=== PATIENT | male | born 1940 | race Caucasian/White ===

== ENCOUNTER 2016-10-30 13:33 | Inpatient (IN) | payer MEDICARE, OTHER ==
[~2016-10-30] VITALS: Ht 170.2 cm; Wt 74.1 kg
[~2016-10-30 13:33] MED LIST: AZOPT 1% OPHT D10 ML LEFT EYE; BAYER CHEWABLE81 MG PO; COMBIGAN OPHT DR5 ML EACH EYE; COUMADIN4 MG PO; ENULOSE10 G/15 ML PO; HYDROCODONE-APA1 TAB PO; MEGACE400 MG/10 PO; PROBIOTIC1 EAC1 PO; SINGULAIR10 MG PO; SORBITOL4000 ML PO; TRAVATAN Z2.5 ML EACH EYE; VITAMIN B-12500 MC1 PO; VITAMIN D31000 UNI2 PO
[2016-10-30] MEDS ORDERED: CELEXA10 MG PO (14:01)
--- NOTE | 2016-10-30 16:30 | NUR ---
Patient is brought to [facility] via EMS personel on a stretcher patient is able to ambulate with a walker, but very unsteady. He is confused and needs much redirection. 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 EMS staff state he spoke about the airplanes on the ride over and "If you need to know anything about an airplane ask him." Spouse has stated this behavior is new and he has become combative and aggressive. At this time he is in his room and he is being assessed by Johanna Watkins RN. He has the appearance of being distraught, does not look like he feels well. Spouse states he has lost about 18 pounds recently. She said he will drink a boost and he likes egss for breakfast. Spouse is answering questions for patient.
[2016-10-30 17:28] LABS: CHOL - HDL RATIO 5.6 ratio (2.3-4.9); LDL-HDL RATIO 4.2 ratio (1.5-3.5); THYROID STIMULATING HORMONE 5.19 uIU/mL (0.36-3.74)
[2016-10-30 17:38] LABS: HEMOGLOBIN A1C 5.4 % (4.8-6.0)
[2016-10-30 19:27] VITALS: BP 127/85; BP 131/95; BMI 23.8
--- NOTE | 2016-10-30 23:31 | NUR ---
B) Recieved sitting in the day room, alert and oriented to self, anxious, scanning the day room, withdrawn and keeping to himself, I) Administered perscribed medications, redirected and oriented as needed, R) Medication compliant, cooperative with staff, P) Continue plan of care, continueto monitor,
[2016-10-31 06:07] LABS: INR 1.15 (0.85-1.17); PROTIME 14.6 SECONDS (11.6-15.0)
[2016-10-31 07:50] VITALS: BP 110/74
[2016-10-31 11:11] VITALS: Ht 170.2 cm; Wt 74.1 kg
--- NOTE | 2016-10-31 11:42 | NUR ---
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 Patient can ambulate independently with a walker, but needs much direction. I) Provide prescribed meds and reorientate and redirect as needed. R) Patient is calm today and he has been sleepy after he received his am meds. He is compliant with medications today. P) Continue plan of care.
--- NOTE | 2016-10-31 19:38 | NUR ---
Called patients spouse and asked her about meds and did confirmation about meds.
[2016-10-31 22:07] VITALS: BP 113/59
--- NOTE | 2016-11-01 00:26 | NUR ---
B) Recieved sitting in the day room quietly, alert and oriented to self, withdrawn or ignoring his surroundings, little or no interaction with staff or peers unless staff iniates conversation, I) Administered perscribed medications, redirect and orient as needed, R) Medication compliant, cooperative with staff, P) Continue plan of care.
[2016-11-01 07:24] LABS: VITAMIN D 25 HYDROXY 56.6 ng/mL (30.0-100.0)
[2016-11-01 08:20] LABS: RAPID PLASMA REAGIN Non Reactive (Non Reactive)
[2016-11-01 08:55] VITALS: BP 111/81
[2016-11-01 09:17] LABS: FOLATE (FOLIC ACID) - SERUM 18.5 ng/mL (>3.0)
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
--- NOTE | 2016-11-01 11:37 | NUR ---
PATIENT HAS REDDENED AREAS WHERE HE HAS BEEN WEARING NICOTINE PATCHES, DR. PERDOMO ASSESSED, WE DID CHECK WITH PHARMACY TO SEE IF THERE WAS A BY MOUTH ALTERNATIVE AND THERE IS GUM, BUT IT REQUIRES 1 PIECE EVERY ONE TO TWO HOURS. NOT AN APPROPRIATE METHOD FOR THIS PATIENT. PATIENT'S SPOUSE SAYS HE NEEDS A NICOTINE PATCH OR HE BECOMES COMBATIVE. DR. PERDOMO ORDERED MONALISA 60 MG PO BID.
--- NOTE | 2016-11-01 12:11 | NUR ---
B) Patient is awake and alert, he knows he is in the hospital, but he does not know the name of the hospital, he knows he is [facility]. Patient has not made any delusional statements today, he is confused and it does take a little while for him to process. Patient can ambulate with a walker with assist, but he is unsteady. I) Provide prescribed meds and redirect to reality as needed. R) Patient is compliant with meds. He mostly watches, but doesn't participate in groups. P) Continue plan of care.
--- NOTE | 2016-11-01 15:05 | NUR ---
LATE ENTRY FROM 10/31/16 SW MET WITH PT'S ,KEYA. PT'S EXPRESSED GRATITUDE FOR PLAN OF TREATMENT AND VERBALIZED UNDERSTANDING OF MEDICATION ADJUSTMENTS.
[2016-11-01 19:30] VITALS: BP 109/62
--- NOTE | 2016-11-02 02:34 | NUR ---
Patient quiet but social with staff. Pleasant and cooperative with medication and assessment. Oriented to self. Continue plan of care, continue to monitor.
[2016-11-02 09:03] VITALS: BP 106/60
--- NOTE | 2016-11-02 10:07 | NUR ---
B.) Sitting up in chair, alert and oriented to name and some what to place, knows he is in a hospital but does not know why, quiet demeanor, sits and observes otheres. I.) Administer medications and monitor compliance, redirect and reorient as need. Refocus to reality versus nonreality for any delusions or hallucinations. Encourage group participation and monitor safety. R.) Compliant with medications. Reorients but is slow to process information, reports no hallucination, no delusions. Cooperative with unit milieu P.) Continue plan of care.
[2016-11-02 19:30] VITALS: BP 118/60
--- NOTE | 2016-11-02 20:40 | NUR ---
B) Recieved sitting in the day room alert and oriented to self and hospital, calm and cooperative watching TV, I) Administered perscribed medications, redirected and oriented as needed, R) Medication compliant, social with staff and peers, P) Continue plan of care, continue to monitor.
--- NOTE | 2016-11-03 07:54 | PN ---
PATIENT:ROSIE REN MEDICAL RECORD: [id number] LOCATION:[facility] ADMISSION DATE: 10/30/16 PROGRESS NOTE DATE OF SERVICE: 11/01/2016 SUBJECTIVE: No new complaint. OBJECTIVE: The patient has not been combative over the last 24 hours. He is talking a little bit more. He did have a good visit with his . On exam, mood is euthymic. Affect is reserved. Speech is rather terse. Content of thought is negative for overt psychosis. Sensorium shows no change. ASSESSMENT: No change in diagnosis. PLAN: 1. Maintain current medications. 2. Continue supportive therapy. TRANSINT:[id number] Voice Confirmation ID: [id number] DOCUMENT ID: [id number] AQUILES BROWN III, MD at 0754 CC: [id number] DICTATION DATE: 11/01/16 1048 CRACKING MACHINE OPERATOR: 11/01/16 1209 ADM IN [id number] [place] [address]
[2016-11-03 10:07] VITALS: BP 96/62
--- NOTE | 2016-11-03 14:28 | NUR ---
ORIENTED TO PERSON AND THE FACT THAT HE IS IN THE HOSPITAL. NO AGGRESSION NOTED. NO SIGNS OF HALLUCINATIONS AT THIS TIME. DENIES SI AND DEPRESSION. REORIENTED AND REDIRECTED NEEDED BACK TO REALITY AND SURROUNDING ENVIRONMENT. MEDICATIONS ADMINISTERED AND PT WAS COMPLIANT. FALL PRECAUTIONS MAINTAINED. PT USES WALKER BUT DOES REQUIRE REMINDING HOW PROPER USE. WILL CONTINUE WITH PLAN OF CARE
[2016-11-03 19:30] VITALS: BP 111/65
--- NOTE | 2016-11-03 19:47 | NUR ---
RECEIVED IN DAYROOM. SETTING ON SOFA WITH PEER AT HIS SIDE. SOCIALIZING WITH PEER AT TIMES. CALM AND COOPERATIVE WITH CARE AND ASSESSMENT. NO SIGNS OF HALLUCINATIONS. NO SIGNS OF AGGRESSION. ORIENTED TO SELF ONLY. REDIRECT AND REORIENT NEEDED. CONTINUES TO REST QUIETLY ON SOFA. CONTINUE PLAN OF CARE
[2016-11-04 10:31] VITALS: BP 115/72
--- NOTE | 2016-11-04 17:56 | NUR ---
RECEIVED THIS AM IN CHAIR IN HALLWAY AT NURSES STATION.CALM AND COOPERATIVE.COMPLIANT WITH MEDS.IS ORIENTED TO SELF AND HOSPITAL.AMBULATORY WITH WALKER.WILL CONTINUE WITH PLAN OF CARE,MONITOR FOR CHANGES AND SAFETY.VISITS WITH OTHER MALE PEER.
--- NOTE | 2016-11-04 19:57 | NUR ---
RECEIVED IN DAYROOM. SETTING ON SOFA WATCHING TV AND SOCIALIZING AT TIMES. CALM AND COOPERATIVE WITH CARE AND ASSESSMENT. NO SIGNS OF HALLUCINATIONS. NO SIGNS OF AGGRESSION. REDIRECT AND REORIENT NEEDED. CONTINUES TO SET QUIETLY WATCHING TV. CONTINUE PLAN OF CARE
[2016-11-04 20:00] VITALS: BP 115/66
[2016-11-05 08:22] VITALS: BP 108/72
--- NOTE | 2016-11-05 10:13 | NUR ---
Nutrition Follow Up: Chart reviewed. Pt is eating 68% meal avg on a Regular diet and receiving Boost with meals. Wt gain of 13# since admit? Meds noted including Megace, Lactulose, Sorbitol. No new labs to assess. Pt with good po intake at this time. Rec continue current diet, supplement regimen. Will continue to send selective menus and honor food preferences. RD following.
--- NOTE | 2016-11-05 13:49 | NUR ---
(B)RECEIVED PATIENT SITTING IN A CHAIR AT THE NURSES STATION. ORIENTED TO SELF AND TIME. POOR INSIGHT INTO THE REASON FOR HOSPITALIZATION. CALM AND COOPERATIVE. CONFUSED,. (I)ADMINISTER MEDS AND MONITOR COMPLIANCE. REORIENT NEEDED. (R)MED COMPLIANT. POOR REORIENTATION DUE TO IMPAIRED ABILITY TO RETAIN INFORMATION. REMAINS CONFUSED. COOPERATIVE WITH UNIT MILEU. (P)CONTINUE POC AND MAINTAIN FALL PRECAUTIONS.
[2016-11-05 19:31] VITALS: BP 135/77
--- NOTE | 2016-11-05 23:11 | NUR ---
PATIENT RECIEVED LYING IN DAYROOM ON THE COUCH WATCHING T.V. PATIENT ORIENTED TO PERSON, PLACE AND TIME, NON-AGRESSIVE AND NON-COMBATIVE. COOPERATIVE WITH MEDICATION, CALM. CONTINUE TO MONITOR, CONTINUE PLAN OF CARE.
[2016-11-06 08:02] VITALS: BP 107/74
--- NOTE | 2016-11-06 14:13 | NUR ---
RECEIVED THIS IN DAYROOM RESTING ON SOFA.IS ORIENTED TO PERSON AND TIME.IS COMPLIANT WITH MEDS AND COOPERATIVE WITH STAFF AND PEERS.NO SIGNS OF AGGRESSION OBSERVED.AMBULATES WITH WALKER WITH FAIRLY STEADY GAIT.WILL CONTINUE WITH PLAN OF CARE,MONITOR FOR CHANGES AND SAFETY.
[2016-11-06 19:14] VITALS: BP 129/68
--- NOTE | 2016-11-06 21:36 | NUR ---
PATIENT WAS RELAXED ON SOFA IN DAYROOM, PATIENT HAD FLAT AFFECT. DENIES DEPRESSION, THOUGHTS OF SELF HARM AND HALLUCINATIONS. ORIENTED TO PERSON AND PLACE, NOT TIME OR SITUATION. PATIENT REORIENTED. PATIENT NON-AGRESSIVE, NON-COMBATIVE. COMPLIANT AND COOPERATIVE WITH MEDICATION. CONTINUE TO MONITOR, CONTINUE PLAN OF CARE.
[2016-11-07 09:05] VITALS: BP 108/66
--- NOTE | 2016-11-07 12:23 | NUR ---
(B)RECEIVED PATIENT SITTING IN A CHAIR AT THE NURSES STATION. ORIENTED TO SELF ONLY AEB RELATING "BETWEEN A ROCK AND A HARD PLACE." CALM AND COOPERATIVE. INTERACTS WHEN APPROACHED HOWEVER DOES NOT INITIATE CONVERSATION. POOR INSIGHT INTO THE REASON FOR HSOPITALIZATION. (I)ADMINISTER MEDS AND MONITOR COMPLIANCE. REORIENT NEEDED. (R)MED COMPLIANT. POOR REORIENTATION DUE TO IMPAIRED ABILITY TO COMPREHEND, PROCESS AND RETAIN INFORMATION. COOPERATIVE WITH UNIT MILEU. REMAINS CONFUSED. (P)CONTINUE POC AND MAINTAIN FALL PRECAUTIONS.
--- NOTE | 2016-11-07 13:22 | PN ---
PATIENT:ROSIE REN MEDICAL RECORD: [id number] LOCATION:[facility] ADMISSION DATE: 10/30/16 PROGRESS NOTE DATE OF SERVICE: 11/06/2016 SUBJECTIVE: The patient's case was discussed with staff. He has no new complaint. OBJECTIVE: The patient is in good behavioral control with limited insight about his condition. He tolerates his medicines well. ASSESSMENT: No change in diagnoses. PLAN: Current medicines have been reviewed and will be maintained. The patient is sleeping reasonably well and eating a little bit better. He has had no active hallucinations today. TRANSINT:[id number] Voice Confirmation ID: [id number] DOCUMENT ID: [id number] MEGHNA FOUNTAIN MD at 1322 CC: [id number] DICTATION DATE: 11/06/16 164 SOLAR SALES MANAGER: 11/06/162053 ADM IN [place] [id number] [place] [id number]
[2016-11-07 19:30] VITALS: BP 136/71
--- NOTE | 2016-11-08 01:35 | NUR ---
B) recieved laying in the couch in the day room watching TV, alert and oriented to self , calm and cooperative with staff, patient and friendly today, I) Administered perscribed medication, redirected and oriented as needed, R) Medication compliant, aware of surroundings, P) Continue plan of care, continue to monitor.
[2016-11-08 08:14] VITALS: BP 124/61
--- NOTE | 2016-11-08 08:18 | PN ---
PATIENT:ROSIE REN MEDICAL RECORD: [id number] LOCATION:[facility] ADMISSION DATE: 10/30/16 PROGRESS NOTE DATE OF SERVICE: 11/07/2016 SUBJECTIVE: The patient's case was discussed with staff. He has no new complaint. OBJECTIVE: The patient is in good behavioral control with limited insight about his condition. He generally tolerates his medicines well. ASSESSMENT: No change in diagnosis. PLAN: Brief supportive and educational interventions were made. buttermaker prognosis is guarded. TRANSINT:[id number] Voice Confirmation ID: [id number] DOCUMENT ID: [id number] MEGHNA FOUNTAIN MD at 0818 CC: [id number] DICTATION DATE: 11/07/16 1318 POKER ROOM MANAGER: 11/07/16 1646 ADM IN [id number] [place] [address]
--- NOTE | 2016-11-08 10:10 | NUR ---
B.) Alert and oriented to name and place, has no insight to reason for hospitalization. I.) Administer medication and monitor compliance. redirect for any inappropriate behavior. Refocus to reality versus nonreality for any hallucinations. Monitor safety. R.) Compliant with medications. Calm and pleasant with care. No aggression. No hallucinations. P.) Continue plan of care.
[2016-11-08 19:42] VITALS: BP 108/67
--- NOTE | 2016-11-08 22:57 | NUR ---
B) Recieved sitting in the day room watching TV, Alert and oriented to self and hospital, calm and quiet, cooperative with assesment and care, I) Administered perscribed medications, redirected and oriented as needed, R) Medication compliant, P) Continue plan of care, continue to monitor.
[2016-11-09 07:45] VITALS: BP 111/67
--- NOTE | 2016-11-09 08:10 | NUR ---
PATIENT IS CALM AND PLEASANT, HE IS NOT MAKING ANY DELUSIONAL STATEMENTS, HE IS ORIENTED TO SELF AND SOMETIMES PLACE, HE KNOWS HE IS IN THE HOSPITAL, BUT TODAY DOES NOT KNOW WHICH ONE. HE AMBULATES AD [place] WITH A WALKER, BUT HE HAS BEEN SLEEPY TODAY, HE DOES NOT USUALLT SAY MUCH UNLESS SPOKE TO, BUT HE HAS A SENSE OF HUMOR AND DOES TRY TO JOKE. PROVIDE PRESCRIBED MEDS AND ENCOURAGE GROUPS PATIENT IS COMPLIANT WITH MEDS. CONTINUE PLAN OF CARE.
--- NOTE | 2016-11-09 08:28 | PN ---
PATIENT:ROSIE REN MEDICAL RECORD: [id number] LOCATION:[facility] ADMISSION DATE: 10/30/16 PROGRESS NOTE DATE OF SERVICE: 11/08/2016 SUBJECTIVE: The patient's case was discussed with staff. He has no new complaint. OBJECTIVE: The patient is cognitively impaired, but denies that he would seek to harm himself or others. He tolerates his medicines well. ASSESSMENT: No change in diagnoses. PLAN: The patient's says that their insurance will not pay for Namenda. She also says it is something they cannot afford. I am not sure how beneficial the medicine has been for him. I do think it would probably help, but there is no point in prescribing it if they cannot get it and so I am going to discontinue it. I will observe him for behavior changes associated with the discontinuation. TRANSINT:[id number] Voice Confirmation ID: [id number] DOCUMENT ID: [id number] MEGHNA FOUNTAIN MD at 0828 CC: [id number] DICTATION DATE: 11/08/16 1302 WOUND CARE TECHNICIAN: 11/08/16 1938 ADM IN [facility] [address] [place] [address]
[2016-11-09 09:00] VITALS: BP 111/67
[2016-11-09 19:30] VITALS: BP 108/74
--- NOTE | 2016-11-10 00:53 | NUR ---
B) Recieved sitting in the day room on the couch watching TV, alert and oriented to self and hospital, calm and cooperative with staff, I) Administered perscribed medications, redirected and oriented as needed, R) Medication conpliant, quiet , speaks when spoken to, P) Continue plan of care, continue to monitor.
[2016-11-10 07:30] VITALS: BP 105/61
--- NOTE | 2016-11-10 13:12 | NUR ---
SPOKE WITH PTS FAMILY AND UPDATED THEM ON HIS CONDITION AND MEDICATIONS ALONG WITH POSSIBLE DISCHARGE PLANS FOR NEXT WEEK. ORIENTED TO PERSON, PLACE AND TIME. NO AGGRESSION NOTED. DENIES SI AND DEPRESSION. NO HALLUCINATIONS NOTED. SOME COUGHING NOTED BUT NOT PRODUCTIVE. ENCOURAGED PT TO EXPRESS FEELINGS AND TO LET STAFF KNOW HIS NEEDS. ADMINSTERED MEDICATIONS AND PT COMPLIANT. FALL PRECAUTIONS MAINTAINED. PT USING WALKER TO AMBULATE. WILL CONTINUE TO MONITOR AND CONTINUE WITH PLAN OF CARE.
[2016-11-10 19:30] VITALS: BP 150/86
--- NOTE | 2016-11-10 19:46 | NUR ---
RECEIVED IN DAYROOM. LAYING ON SOFA NOT SOICALIZING WITH PEERS. WATCHING TV. NO SIGNS OF HALLUCINATIONS. NO SIGNS OF AGGRESSION. CALM AND COOPERATIVE WITH CARE AND ASSESSMENT. ENCOURAGE TO EXPRESS NEEDS, CONTINUES TO LAY QUIETLY ON SOFA. CONTINUE PLAN OF CARE
[2016-11-11 11:40] VITALS: BP 110/68
--- NOTE | 2016-11-11 13:58 | PN ---
PATIENT:ROSIE REN MEDICAL RECORD: [id number] LOCATION:[facility]112 ADMISSION DATE: 10/30/16 PROGRESS NOTE DATE OF SERVICE: 11/10/2016 SUBJECTIVE: The patient's case was discussed with staff. He has no new complaint. OBJECTIVE: The patient is in good behavioral control with poor insight about his condition. He does tolerate his medicines well. ASSESSMENT: No change in diagnoses. PLAN: Current medicines and therapies have been reviewed and will be maintained. Long-term prognosis is guarded. TRANSINT:[id number] Voice Confirmation ID: [id number] DOCUMENT ID: [id number] MEGHNA FOUNTAIN MD at 1358 CC: [id number] DICTATION DATE: 11/10/16 1222 VENEER LATHE OPERATOR: 11/10/16 1501 ADM IN [place] [id number] [place] [address]
--- NOTE | 2016-11-11 14:49 | NUR ---
RECEIVED THIS AM SITTING IN CHAIR IN HALLWAY AT NURSES STATION.IS AMBULATORY WITH WALKER.ORIENTED X 3.COMPLIANT WITH MEDS.DENIES HALLUCINATIONS OR SUICIDE IDEATIONS.WILL CONTINUE WITH PLAN OF CARE,MONITOR FOR CHANGES AND SAFETY.
[2016-11-11 19:30] VITALS: BP 126/75
--- NOTE | 2016-11-11 19:41 | NUR ---
RECEIVED IN DAYROOM. SETTING ON SOFA WITH EYES OPEN. NOT SOCIALIZING WITH PEERS. WATCHING TV AT TIMES. RESPONDS APPROPRIATELY TO QUESTIONS. CALM AND COOPERATIVE WITH CARE AND ASSESSMENTS. ALERT AND ORIENTED. ENCOURAGE TO EXPRESS NEEDS. CONTINUES TO SET QUIETLY ON THE SOFA. CONTINUE PLAN OF CARE
--- NOTE | 2016-11-12 10:12 | NUR ---
Nutrition Follow Up: Chart reviewed. Pt is eating 47% meal avg on a Regular diet. He is receiving Boost with meals. +BM 11/10/16. No new labs to assess. Meds noted including Megace, Vit D, Vit B12, Lactulose, Sorbitol. No new wt to assess. Pt with poor po intake and is not meeting est nutritional needs. Rec continue current diet, supplement regimen. Will continue to send selective menus and honor food preferences. RD following.
--- NOTE | 2016-11-12 10:22 | PN ---
PATIENT:ROSIE REN MEDICAL RECORD: [id number] LOCATION:[facility] ADMISSION DATE: 10/30/16 PROGRESS NOTE DATE OF SERVICE: 11/04/2016 SUBJECTIVE: No new complaint is noted. OBJECTIVE: Over the weekend, the patient did not give evidence of hallucinations. He was given the [facility] Mental Status examination by Dr. Andrea Brothers and obtained a total score of 17 out of 30, indicating a moderately severe level of impairment. Recommendation was for him to be in a setting where 24-hour a day supervision can be provided and medications dispensed. On exam, the patient's mood is euthymic. Affect is rather bland. Speech is terse. Content of thought is negative for overt psychosis. Sensorium is unchanged. ASSESSMENT: No change in diagnosis. PLAN: 1. Maintain current medication. 2. Coordinate with family and case management regarding eventual disposition. TRANSINT:[id number] Voice Confirmation ID: [id number] DOCUMENT ID: [id number] AQUILES BROWN III, MD at 1022 CC: [id number] DICTATION DATE: 11/04/16 1119 SHADE CLOTH FINISHER: 11/04/16 1332 ADM IN [place] [id number] [place] [id number]
[2016-11-12] MEDS ORDERED: FEXOFENADINE HC60 MG PO (11:01)
[2016-11-12] MEDS ORDERED: GEODON20 MG PO (11:02)
[2016-11-12] MEDS ORDERED: VITAMIN D31000 UNI2 PO (11:03)
[2016-11-12] MEDS ORDERED: SYNTHROID25 MCG PO (11:03)
--- NOTE | 2016-11-12 11:10 | NUR ---
Alert and oriented to name and place, continues to state he does'nt know why he is here, discussed his reason for admission, states no hallucinations. Patient observed throughtout day sitting quietly on sofa, no hallucination, calm and pleasant. Educated on discharge back home tomorrow, verbalized understanding. Compliant with medications, ambulates safely with walker, safety maintained. Continue with plan of care.
--- NOTE | 2016-11-12 12:57 | PN ---
PATIENT:ROSIE REN MEDICAL RECORD: [id number] LOCATION:[facility] ADMISSION DATE: 10/30/16 PROGRESS NOTE DATE OF SERVICE: 11/11/2016 SUBJECTIVE: The patient's case was discussed with staff. He has no new complaint. OBJECTIVE: The patient denies intent to harm himself or others. He generally tolerates his medicines well. ASSESSMENT: No change in diagnoses. PLAN: The patient is significantly and severely impaired cognitively, but he has not been openly aggressive today. He will be maintained on current medicines, which I have been reviewed. His long-term prognosis is guarded. TRANSINT:[id number] Voice Confirmation ID: [id number] DOCUMENT ID: [id number] MEGHNA FOUNTAIN MD at 1257 CC: [id number] DICTATION DATE: 11/11/16 1401 TREE FARMER: 11/11/16 2107 ADM IN [place] [id number] [place] [address]
[2016-11-12 13:55] VITALS: BP 104/69
--- NOTE | 2016-11-12 19:55 | NUR ---
RECEIVED IN DAYROOM. LAYING ON SOFA WATCHING TV. QUIET. NOT SOCIALIZING. CALM AND COOPERATIVE WITH CARE AND ASSESSMENT. NO SIGNS OF AGGRESSION. NO SIGNS OF HALLUCINATIONS. ENCOURAGE TO EXPRESS NEEDS. CONTINUES TO REST ON SOFA EYES OPEN. CONTINUE PLAN OF CARE
[2016-11-12 20:00] VITALS: BP 125/72
--- NOTE | 2016-11-13 06:46 | PN ---
PATIENT:ROSIE REN MEDICAL RECORD: [id number] LOCATION:[facility] ADMISSION DATE: 10/30/16 PROGRESS NOTE DATE OF SERVICE: 11/12/2016 SUBJECTIVE: No new complaint. OBJECTIVE: The patient has been doing well, tolerating medications. No aggressiveness or agitation noted. On exam, mood is euthymic. Affect bland. Speech is somewhat tangential. Content of thought is not actively psychotic. Sensorium shows no change. ASSESSMENT: No change in diagnosis. PLAN: 1. We will continue all current medications. 2. Anticipate discharge tomorrow. TRANSINT:[id number] Voice Confirmation ID: [id number] DOCUMENT ID: [id number] AQUILES BROWN III, MD at 0646 CC: [id number] DICTATION DATE: 11/12/16 1109 DIRECTOR DIVERSITY: 11/12/16 2140 ADM IN [place] [id number] [place] [id number]
[2016-11-13 08:00] VITALS: BP 102/55
--- NOTE | 2016-11-13 11:00 | NUR ---
Alert and oriented times three, calm and cooperative with care. Pleasant, sits on sofa observing. Redirect for any inappropriate behavior, refocus as need any hallucinations. Good behavior control with no aggression. No hallucinations. Educated patient on discharge is now planned for tomorrow. Compliant with medications, calm and pleasant. Safety maintained.
[2016-11-13 19:57] VITALS: BP 123/68
--- NOTE | 2016-11-13 21:10 | PN ---
PATIENT:ROSIE REN MEDICAL RECORD: [id number] LOCATION:[facility] ADMISSION DATE: 10/30/16 PROGRESS NOTE DATE OF SERVICE: 11/12/2016 SUBJECTIVE: No new complaint is noted. OBJECTIVE: The patient was scheduled for discharge today, but his is ill, she will pick him up tomorrow. Over the last 24 hours, the patient has remained cooperative and is tolerating medications well. On exam, mood is euthymic. Affect is bland. Speech is rather terse. Content of thought shows no overt psychosis. Sensorium is unchanged. ASSESSMENT: No change in diagnosis. PLAN: 1. Continue current medications. 2. Continue supportive therapy. 3. Anticipate discharge tomorrow. TRANSINT:[id number] Voice Confirmation ID: [id number] DOCUMENT ID: [id number] AQUILES BROWN III, MD at 2110 CC: [id number] DICTATION DATE: 11/13/16 0935 IN HOME CAREGIVER: 11/13/16 [address] [facility] [address] [place] [address]
--- NOTE | 2016-11-14 01:02 | NUR ---
B) Recieved sitting in the couch in the day room watching the other patients and watching TV, alert and oriented X 3, calm and cooperative with staff, I) Adminstered perscribed medications, redirected as needed, R) Medication compliant, will discharge tomorrow to home, P) Continue plan of care, continue to monitor.
--- NOTE | 2016-11-14 11:17 | NUR ---
B) Patient is awake and alert and he is oriented x2 this am, no delusions, hallucinations or aggression noted, he knows he is going home today and spouse will b e picking him up. He ambulates well with a walker. I) Provide prescribed meds. R) Medications called to [facility], for 30 days no refills, orders and meds faxed to Dr. Mistry patients PCP. P) Continue d/c plan
--- NOTE | 2016-11-14 12:45 | NUR ---
Patient's spouse here to pick Fish up and take him home. Medications explained to spouse and let her know which meds were called into the pharmacy. Patient is missing Clear[employer]aleing bottoms and did let spouse be aware. Patient walked to car with walker assisted by this nurse. All belongings given to spouse and did give her the eye drops to take home and the hydrocortisone cream that he uses after the removal of the nicotine patch.
--- NOTE | 2016-11-15 08:02 | DS ---
PATIENT:ROSIE REN :36 MEDICAL RECORD: [id number] DISCHARGE SUMMARY ADMISSION DATE: 10/30/16 DISCHARGE DATE: 11/14/16 DATE OF ADMISSION: 10/30/2016 DATE OF DISCHARGE: 11/14/2016 HISTORY: First correction admission for this 76-year-old white male patient who was admitted from home. He has a history of dementia that dates back for several years. The patient had been exhibiting worsening confusion and disorientation and recently he had become aggressive with his . For further details, please see previously dictated history. COURSE IN THE HOSPITAL: The patient was seen in consultation by Dr. Nataliya Estevez. Dr. Estevez noted the following ongoing medical problems, glaucoma, coronary artery disease, hyperlipidemia, COPD, prostate cancer by history and vitamin B12 and vitamin D deficiency. From a medication standpoint, the patient was placed on Geodon 20 mg at bedtime to control agitation and psychotic symptoms. He was also maintained on Synthroid 25 mcg daily, Mucinex 600 b.i.d., Gail 60 b.i.d., vitamin D supplements, vitamin B12 supplements, aspirin 81 mg daily, Singulair 10 mg h.s., Megace 200 mg twice a day and sorbitol. The patient made good progress over the course of the hospitalization. He showed a resolution of his agitation. He continued to show significant confusion, dementia was confirmed by neuropsychological testing. The patient was stable at the time of discharge and will follow up with primary care. FINAL DIAGNOSES: AXIS I: Vascular dementia with behavioral disturbance, improved. AXIS II: No diagnosis. AXIS III: Status post femoral neck fracture, history of urinary incontinence, history of closed head injury, hyperlipidemia, and coronary artery disease. AXIS IV: Moderate. AXIS V: 38. PLAN: 1. The patient will be discharged on current medications. 2. Follow up through primary care physician. 3. Activities and diet as tolerated. TRANSINT:[id number] Voice Confirmation ID: [id number] DOCUMENT ID: [id number] AQUILES BROWN III, MD at 0802 CC: [id number] DICTATION DATE: 11/14/16 1109 FORECLOSURE CLERK: 11/15/16 0004 DIS IN 11/14/16 [place] [address]
== END 2016-11-14 12:50 | disposition home or self-care (01) | DRG 914 ==
LOC: D.PSYCH 13:33
PROVIDERS: ADMIT Psychiatry & Neurology Psychiatry
DX: S09.90XS Unspecified injury of head, sequela (principal); F01.51 Vascular dementia, unspecified severity, with behavioral disturbance; E78.5 Hyperlipidemia, unspecified; I25.10 Atherosclerotic heart disease of native coronary artery without angina pectoris; J44.9 Chronic obstructive pulmonary disease, unspecified; H40.9 Unspecified glaucoma; E53.8 Deficiency of other specified B group vitamins; E55.9 Vitamin D deficiency, unspecified; Z72.0 Tobacco use; F32.9 Major depressive disorder, single episode, unspecified; Z85.46 Personal history of malignant neoplasm of prostate; Z91.81 History of falling; M41.9 Scoliosis, unspecified; E03.9 Hypothyroidism, unspecified